=== PATIENT | female | born 1985 | race Two or more races ===

== ENCOUNTER 2025-08-04 18:19 | Emergency (ER) | payer OTHER ==
[~2025-08-04] VITALS: Ht 152.4 cm; Wt 95.5 kg
--- NOTE | 2025-08-04 18:47 | ED.PDOC ---
General HPI Comments This is a severely morbidly obese 39 year-old female, with a Hx of Lupus, HTN, and Anemia, who presents to the ED with a chief complaint of R flank pain as of x3 months ago. Patient reports flank pain is exacerbated each month with her menstrual cycle. Patient reports additional symptoms of headache as of today. Patient has no further complaints at this time and otherwise denies dizziness, N/V/D, blurred vision, abdominal pain, dysuria, or hematuria. Patient was hypertensive and tachycardic at arrival. Chief Complaint: Flank Pain Time Seen by MD: 18:38 Reviewed notes: Nurses Notes, Medications, Allergies Allergies: Coded Allergies: Cefepime (Verified Allergy, Unknown, 08/04/25) Ciprofloxacin (Verified Allergy, Unknown, 08/04/25) Hydromorphone (Verified Allergy, Unknown, 08/04/25) Penicillins (Verified Allergy, Unknown, 08/04/25) Piperacillin (Verified Allergy, Unknown, 08/04/25) Information Source: Patient Mode of Arrival: Ambulatory Severity: Moderate Timing: Months (x3 ) Duration: Since onset Prehospital treatment: None Onset: Spontaneous Symptoms: Other (Flank pain) Location: (R) Flank, (L)Flank associated signs and symptoms: Flank Pain Past Medical History PAST MEDICAL HISTORY: Anemia, HTN Past Medical History (Other): Lupus Surgical History: Denies all surgeries NEIGHBORHOOD CONSERVATION OFFICER History: No Pertinent NEIGHBORHOOD CONSERVATION OFFICER History Family History Family History: Reviewed,noncontributory to illness, No family hx of Cancer, No family hx of DM, No family hx of Heart sandor, No family hx of HTN, No family hx ofKidney sandor, No family hx of Liver sandor, No family hx of Lung sandor, No family hx of Stroke Social History Smoker: Non-Smoker Alcohol: Denies ETOH Use Drugs: Denies Drug Use Lives In: Home Constitutional: denies: chills, diaphoresis, fatigue, fever, malaise, sweats, weakness, others EENTM: denies: blurred vision, double vision, ear bleeding, ear discharge, ear drainage, ear pain, ear ringing, eye pain, eye redness, hearing loss, mouth pain, mouth swelling, nasal discharge, nose bleeding, nose congestion, nose pain, photophobia, tearing, throat pain, throat swelling, voice changes, others Respiratory: denies: cough, hemoptysis, orthopnea, SOB at rest, shortness of breath, SOB with excertion, stridor, wheezing, others Cardiovascular: denies: chest pain, dizzy spells, diaphoresis, Dyspnea on exertion, edema, irregular heart beat, left arm pain, lightheadedness, palpitations, PND, syncope, others Gastrointestinal: reports: nausea; denies: abdomen distended, abdominal pain, blood streaked bowels, constipated, diarrhea, dysphagia, difficulty swallowing, hematemesis, melena, poor appetite, poor fluid intake, rectal bleeding, rectal pain, vomiting, others Genitourinary: reports: flank pain (right ); denies: abnormal vagina bleeding, burning, dyspareunia, dysuria, frequency, hematuria, incontinence, pain, , vagina discharge, urgency, others Neurological: denies: dizziness, fainting, headache, left sided numbness, left sided weakness, numbness, paresthesia, pre-existing deficit, right sided n umbness, right sided weakness, seizure, speech problems, tingling, tremors, weakness, others Musculoskeletal: denies: back pain, gout, joint pain, joint swelling, muscle pain, muscle stiffness, neck pain, others Integumetry: denies: bruises, change in color, change in hair/nails, dryness, laceration, lesions, lumps, rash, wounds, others Allergic/Immunocompromised: denies: Difficulty Healing, Frequent Infections, Hives, Itching, others Hematologic/Lymphatic: denies: anemia, blood clots, easy bleeding, easy bruising, swollen glands, others Endocrine: denies: excessive hunger, excessive sweating, excessive thirst, excessive urination, flushing, intolerance to cold, intolerance to heat, unexplained weight gain, unexplained weight loss, others Psychiatric: denies: anxiety, bipolar disorder, depression, hopeless, panic disorder, schizophrenia, sleepless, suicidal, others All Other Systems: Reviewed and Negative Physical Exam General Appearance: Moderate Distress (Due to flank pain concerns), Normal HEENT: Normal ENT Inspection, Pharynx Normal, TMs Normal Neck: Full Range of Motion, Non-Tender, Normal, Normal Inspection Respiratory: Chest Non-Tender, Lungs Clear, No Accessory Muscle Use, No Respiratory Distress, Normal Breath Sounds Cardiovascular: No Edema, No JVD, No Murmur, No Gallop, Normal Peripheral Pulses, Regular Rate/Rhythm Breast Exam: Deferred Gastrointestinal: Other (Right-sided CVA tenderness appreciated with probable left-sided CVA tenderness to palpation. Difficult to assess due to body habitus. No signs of trauma.) Genitalia: Deferred Pelvic: Deferred Rectal: Deferred Extremities: No calf tenderness, Normal capillary refill, Normal inspection, Normal range of motion, Non-tender, No pedal edema Neurologic: Alert Cerebellar Function: NOT DONE Reflexes: NOT DONE Skin: Dry, Normal Color, Warm Lymphatic: No Adenopathy Was a procedure done? Was a procedure done?: No Differential Diagnosis Kidney stone (Female): Strain, Urolithiasis, Other (Pyelonephritis) Urinary Problem (Female): Urolithiasis, UTI, Vaginitis X-Ray, Labs, Meds, VS Vital Signs Date Time Temp Pulse Resp B/P (MAP) Pulse Ox O2 Delivery O2 Flow Rate FiO2 08/05/25 01:14 194/95 08/05/25 01:09 97.8 81 18 194/95 (128) 100 97.8 08/05/25 00:26 77 08/04/25 23:59 98.1 83 18 210/107 (141) 100 98.1 08/04/25 19:57 97.8 99 18 180/110 (133) 99 97.8 08/04/25 18:21 98.7 104 16 186/117 99 98.7 Lab Test 08/04/25 23:07 08/04/25 18:55 Range/Units Urine Color Dark-brown Yellow Urine Clarity Ex.turbid Clear Urine pH 6.0 5.0-9.0 Urine Specific Dennis 1.032 1.001-1.035 Urine Protein 1+ H Negative Urine Ketones Trace Negative Urine Blood 3+ H Negative /uL Urine Nitrite Negative Negative Urine Bilirubin Negative Negative Urine Urobilinogen Normal Negative mg/dL Urine Leukocyte Esterase 2+ Negative /uL Urine RBC 8047 0 - 4 /hpf Urine Microscopic WBC 325 H 0-5 /HPF Urine Squamous Epithelial Cells Few <5 /hpf Urine Bacteria Mod H None Seen /hpf Urine Glucose Normal Normal mg/dL White Blood Count 11.0 H 4.4-10.8 10^3/uL Red Blood Count 5.95 H 4.0-5.20 10^6/uL Hemoglobin 10.0 L 12.2-16.2 g/dL Hematocrit 33.2 L 36.0-46.0 % Mean Corpuscular Volume 55.9 L 80.0-100.0 fL Mean Corpuscular Hemoglobin 16.8 L 28.0-32.0 pg Mean Corpuscular Hemoglobin Concent 30.0 L 32.0-36.0 g/dL Red Cell Distribution Width 20.9 H 11.8-14.3 % Platelet Count 435 140-450 10^3/uL Mean Platelet Volume 8.3 6.9-10.8 fL Neutrophils (%) (Auto) 82.2 H 37.0-80.0 % Lymphocytes (%) (Auto) 12.3 10.0-50.0 % Monocytes (%) (Auto) 3.7 0.0-12.0 % Eosinophils (%) (Auto) 1.1 0.0-7.0 % Basophils (%) (Auto) 0.7 0.0-2.0 % Neutrophils # (Auto) 9.0 H 1.6-8.6 10 ^3/uL Lymphocytes # (Auto) 1.4 0.4-5.4 10 ^3/uL Monocytes # (Auto) 0.4 0-1.3 10 ^3/uL Eosinophils # (Auto) 0.1 0-0.8 10 ^3/uL Basophils # (Auto) 0.1 0-0.2 10 ^3/uL Nucleated Red Blood Cells 0.0 % Sodium Level 139 136-145 mmol/L Potassium Level 3.8 3.5-5.1 mmol/L Chloride Level 104 98-107 mmol/L Carbon Dioxide Level 25 20-31 mmol/L Anion Gap 10 5-15 Blood Urea Nitrogen 11 9-23 mg/dL Creatinine 0.74 0.550-1.02 mg/dL Glomerular Filtration Rate Calc 105 >90 mL/min BUN/Creatinine Ratio 14.9 10.0-20.0 Serum Glucose 111 H 74-106 mg/dL Calcium Level 8.8 8.7-10.4 mg/dL Total Bilirubin 0.4 0.2-1.0 mg/dL Aspartate Amino Transferase (AST) 12 L 13-40 U/L Alanine Aminotransferase (ALT) 16 7-40 U/L Alkaline Phosphatase 158 H 46-116 U/L Troponin I High Sensitivity < 3 L </=34 ng/L Total Protein 8.0 5.7-8.2 g/dL Albumin 4.5 3.2-4.8 g/dL Lipase 50 12-53 U/L Current Medications Medications (Trade) Dose Ordered Sig/Jose Route Start Time Stop Time Status Last Admin Ketorolac Tromethamine (Toradol Injection) 30 mg ONCE ONCE IM 08/04/25 18:45 08/04/25 18:46 DC 08/04/25 20:06 Acetaminophen/ Hydrocodone Bitart ([place] 10/325MG Tab) 1 tab ONCE ONCE PO 08/04/25 18:45 08/04/25 18:46 DC 08/04/25 20:06 Clonidine HCl (Catapres Tablet) 0.2 mg ONCE ONCE PO 08/05/25 00:15 08/05/25 00:16 DC 08/05/25 01:14 X-Ray, Labs, Meds, VS Comment All studies performed the ED were evaluated by me personally. Serum studies revealed a mild anemia. Urinalysis confirmed a significant urinary tract infection. EKG showed a sinus rhythm with a rate of 77. Abnormal R-wave progression noted with LVH by voltage. [place] interval of 156 and QT interval of 370. CT of the abdomen and pelvis was unremarkable for any acute intra- abdominal or intrapelvic concerns. Patient appears to be suffering from a significant pyelonephritis as well as what appears to be poorly controlled hypertension. Patient was given her 1st dose of antibiotics prior to discharge. Advise antibiotics as directed and pain medication as needed. Patient's blood pressure was returning to an acceptable range at time of discharge. Advised patient to follow up with the primary care provider for discussions related to what appears to be poorly controlled hypertension. Images Reviewed?: Images reviewed and evaluated by me Time of 1ST Reevaluation: 02:36 Reevaluation 1ST: Improved Consultation: PCP Patient Education/Counseling: Diagnosis, Treatment Family Education/Counseling: Diagnosis, Treatment, No Family Present Medical Screening: No EMC Exist At This Time SEPSIS Sepsis Screen Date sepsis recognized/suspect: Aug 04, 2025 Time Sepsis recognized/suspect: 1821 Recent Procedure: No On Antibiotic Therapy: No Respiratory Rate >20: No Heart Rate >90: Yes Temp<36 C (96.8 F) or >38.3 C: No SBP <90 or MAP <65 mmHG: No New Acute Mental Status Change: No Is the patient on CPAP, BIPAP,: No Physician Orders Ct Ab Pel Wo Con-No Oral Or Iv (08/04/25 18:43) Electrocardigram (08/05/25 00:17) Vital Signs Date Time Temp Pulse Resp B/P (MAP) Pulse Ox O2 Delivery O2 Flow Rate FiO2 08/05/25 01:14 194/95 08/05/25 01:09 97.8 81 18 194/95 (128) 100 97.8 08/05/25 00:26 77 08/04/25 23:59 98.1 83 18 210/107 (141) 100 98.1 08/04/25 19:57 97.8 99 18 180/110 (133) 99 97.8 08/04/25 18:21 98.7 104 16 186/117 99 98.7 Laboratory Tests Test 08/04/25 18:55 White Blood Count 11.0 10^3/uL (4.4-10.8) H Medications Medications Dose Ordered Sig/Jose Route Start Time Stop Time Status Last Admin Dose Admin Acetaminophen/ Hydrocodone Bitart 1 tab ONCE ONCE PO 08/04/25 18:45 08/04/25 18:46 DC 08/04/25 20:06 Clonidine HCl 0.2 mg ONCE ONCE PO 08/05/25 00:15 08/05/25 00:16 DC 08/05/25 01:14 Ketorolac Tromethamine 30 mg ONCE ONCE IM 08/04/25 18:45 08/04/25 18:46 DC 08/04/25 20:06 Departure 1 Departure Time of Disposition: 02:36 Impression: Primary Impression: Pyelonephritis Additional Impression: Hypertensive urgency Disposition: 01 HOME / SELF CARE / HOMELESS Condition: Stable Additional Instructions: Advised patient utilize antibiotics as directed until completion as well as pain medication as needed. Additionally, patient should follow up with her primary care provider for discussions related to what is currently poorly controlled h ypertension. e-Prescriptions Clonidine Hydrochloride (Clonidine Hcl) 0.2 Mg Tab 1 TAB PO Q12HP PRN, #20 TAB 0 Refills To be used if systolic blood pressure is above 160 or diastolic pressure is above 90. Prov: EM GARZA PAC 08/05/25 Ondansetron Odt 4MG Tab (ZOFRAN PO) 4 Mg Tb 4 MG PO Q6HP PRN, #15 TAB ODT TAB-DISSOLVE IN MOUTH, THEN SWALLOW Prov: EM GARZA PAC 08/05/25 Hydrocodone-Acetaminophen (Hydrocodone Bitartrate/AC 10-325 mg) 1 Tab Tab 1 TAB PO Q8HP PRN, #10 TAB Prov: EM GARZA PAC 08/05/25 Ibuprofen Micronized (Ibuprofen) 800 Mg Tab 800 MG PO Q8HP PRN, #20 TAB Prov: EM GARZA PAC 08/05/25 Sulfamethoxazole W/Trimethopri (Bactrim Ds Tablet) 1 Tab Tb 1 TAB PO BID for 10 Days, #20 TAB Prov: EM GARZA PAC 08/05/25 Discharged With: Self, Friend Critical Care Note Critical Care Time?: No Stability Stability form required: No Heart Score Heart Score: Heart Score Response (Comments) Value History N/A 0 EKG N/A 0 Age N/A 0 Risk Factors N/A 0 Troponin N/A 0 Total 0 I personally scribed for EM GARZA PAC ([email or web address]) on 08/04/25 at 18:47. Electronically submitted by Lilly Bhardwaj ([email or web address]). EM GARZA PAC Aug 04, 2025 18:47
[2025-08-04 19:14] LABS: Hematocrit 33.2 % (36.0-46.0); Hemoglobin 10.0 g/dL (12.2-16.2); Mean Corpuscular Hemoglobin 16.8 pg (28.0-32.0); Mean Corpuscular Volume 55.9 fL (80.0-100.0); Nucleated Red Blood Cells % 0.0 %
[2025-08-04 19:36] LABS: Alanine Aminotransferase 16 U/L (7-40); Albumin 4.5 g/dL (3.2-4.8); Anion Gap 10 (5-15); BUN/Creatinine Ratio 14.9 (10.0-20.0); Blood Urea Nitrogen 11 mg/dL (9-23); Calcium 8.8 mg/dL (8.7-10.4); Carbon Dioxide 25 mmol/L (20-31); Chloride 104 mmol/L (98-107); Lipase 50 U/L (12-53); Potassium 3.8 mmol/L (3.5-5.1); Sodium 139 mmol/L (136-145); Total Protein 8.0 g/dL (5.7-8.2)
[2025-08-04 19:37] LABS: Alkaline Phosphatase 158 U/L (46-116); Bilirubin, Total 0.4 mg/dL (0.2-1.0); Glucose 111 mg/dL (74-106)
--- NOTE | 2025-08-04 19:39 | DVH ---
Exam: CT CT AB PEL WO CON-NO ORAL OR IV History: Diffuse right-sided abdominal pain Comparison Study: None Technique: Multidetector spiral CT of the abdomen was performed from lung bases to pubic symphysis. I maging was performed without IV contrast. Axial, coronal and sagittal multiplanar reformats were obta ined from the axial data set by the technologist. Radiation dose : 1. Abdomen/Pelvis: CTDIvol 20.24 mGy, DLP 1076.56 mGy*cm. Findings: Evaluation of solid organs is limited due to lack of intravenous contrast use. Lung Bases: No acute or significant lung base finding. Normal heart size. No pleural or pericardial e ffusion. Liver: The liver is normal in size. No focal lesions. Fatty infiltration. Gallbladder and biliary Tree: Gallbladder is surgically absent. Spleen: Unremarkable Pancreas: The pancreas is grossly normal in appearance. Adrenal Glands: Unremarkable Kidneys: Nonobstructing 3 mm left midpole renal calculus. No hydronephrosis. Bladder: Grossly unremarkable for degree of distention. Bowel: The stomach is grossly normal in appearance. Small bowel and colon are normal in caliber and d istribution. Normal appendix is visualized in the right lower quadrant without findings of appendicit is. Ascites: Absent Lymphadenopathy: No mesenteric, retroperitoneal or periportal lymphadenopathy. Abdominal wall and Mesentery: Unremarkable. Vasculature: The visualized abdominal aorta is normal in size and caliber. Evaluation of abdominal an d pelvic vessels is limited due to lack of intravenous contrast. Pelvic Organs: Bilateral fairly simple appearing adnexal cysts measuring 7.6 cm the left and 4.1 cm o n the right. Musculoskeletal: No aggressive focal bony lesions, acute fractures or dislocation. IMPRESSION: No acute abdominal or pelvic findings. Bilateral simple appearing adnexal cysts. Ultrasound would better assess. Radiation optimization: All CT scans at this facility use at least one of these dose optimization umair hniques: automated exposure control mA and/or kV adjustment per patient size (includes targeted exam s where dose is matched to clinical indication) or iterative reconstruction.
[2025-08-04] MEDS: HYDROcodone-ACET 10/325MG TAB PO ONE (20:06)
[2025-08-04] MEDS: KETOROLAC TROMETH 60MG/2ML VIAL IM ONE (20:06)
[2025-08-05 02:26] LABS: Urine Protein, UAD 1+ (Negative)
[2025-08-05] MEDS ORDERED: BACDST PO (02:37)
[2025-08-05] MEDS ORDERED: IBUP-1455 PO (02:40)
[2025-08-05] MEDS ORDERED: ZOFR4T PO (02:40)
[2025-08-05] MEDS ORDERED: HYDR-4798 PO (02:40)
[2025-08-05] MEDS ORDERED: CLON0.2T PO (02:42)
[2025-08-05] MEDS ORDERED: HYDROcodone-ACET 10/325MG TAB PO ONE (02:45)
[2025-08-05] MEDS: SULFAMETHOX W/TRIMETH(800/160MG) DS TAB PO ONE (03:04)
--- NOTE | 2025-08-05 03:31 | ECG ---
[facility] Test Date: 2025-08-05 Test Time: 00:26:16 Pat Name: ALEX NI Department: Room: Gender: F [employer]: PHI : [id number] Requested By: EM GARZA Order Number: [id number] Reading MD: Measurements Intervals Marshall Rate: 77 P: 45 ID: [id number] QRS: 0 QRSD: 90 T: 77 QT: 370 QTc: 419 Interpretive Statements Sinus rhythm Abnormal R-wave progression, late transition LVH by voltage Please click the below link to view image of tracing.
[2025-08-05 03:45] VITALS: RESP 18; TEMP 98.2; O2SAT 100
[2025-08-05] MEDS ORDERED: MORPHINE SULFATE 4 MG/ML SYR/VIAL IM ONE (04:00)
[2025-08-05] MEDS: LABETALOL HCL 20 MG/4 ML VL IV ONE (04:48)
[2025-08-05 04:59] VITALS: PULSE 71
[2025-08-05] MEDS ORDERED: ONDANSETRON HCL 4 MG/2 ML VIAL IV ONE (05:00)
[2025-08-05 05:18] VITALS: BP 158/98
== END 2025-08-05 03:36 | disposition home or self-care (01) ==
LOC: ER 18:19
DX: N12 Tubulo-interstitial nephritis, not specified as acute or chronic (principal); I16.0 Hypertensive urgency; I10 Essential (primary) hypertension; D64.9 Anemia, unspecified; Z98.890 Other specified postprocedural states; Z88.0 Allergy status to penicillin; Z88.1 Allergy status to other antibiotic agents; Z88.5 Allergy status to narcotic agent; Z88.8 Allergy status to other drugs, medicaments and biological substances
CPT/HCPCS: 36415; 74176; 80053; 81001; 83690; 84484; 85025; 93005; 96372; 96374; 99285; J1885